=== PATIENT | female | born 1970 ===

== ENCOUNTER 2017-02-26 11:06 | Emergency (ER) | payer MEDICAID ==
[2017-02-26 11:15] VITALS: BMI 45.7
[2017-02-26] MEDS ORDERED: Albuterol-Ipratrop 3 mg / 0.5 (3 ml) UD INH STA ×3 (12:17)
--- NOTE | 2017-02-26 12:46 | ED PDOC ---
HPI: CCC, URI, Sore Throat Time Seen by Provider: 02/26/17 11:46 Chief Complaint (Nursing): Cough, Cold, Congestion Chief Complaint (Provider): cough History Per: Patient History/Exam Limitations: no limitations Additional Complaint(s): 46yo F in ED for eval of cough-states that she has had a cough x 3 weeks-was Rx levoquin, Z-pack, augmetin but none have worked to alleviate her cough. Pt states has hx of asthma-has been noting cough without sputum production wheezing and chest tightness without fever. states her nebulizer is not working. denies chills. Past Medical History Reviewed: Historical Data, Nursing Documentation, Vital Signs Vital Signs: Last Vital Signs Temp 98.5 F 02/26/17 11:16 Pulse 83 02/26/17 11:16 Resp 18 02/26/17 11:16 BP 99/63 L 02/26/17 11:16 Pulse Ox 96 02/26/17 12:47 - Medical History PMH: No Chronic Diseases - Family History Family History: States: No Known Family Hx - Home Medications Home Medications: Ambulatory Orders Medication Instructions Recorded Ipratropium 0.02% [Atrovent] 2.5 ml IH Q4 PRN #12 neb 02/26/17 Promethazine DM [Phenergan DM 5 ml PO BID #30 dose 02/26/17 Syrup] predniSONE [predniSONE Tab] 20 mg PO BID #8 tab 02/26/17 - Allergies Allergies/Adverse Reactions: Allergies Allergy/AdvReac Type Severity Reaction Status Date / Time moxifloxacin [From Avelox] Allergy URTICARIA Verified 02/26/17 11:52 Curb-65 Severity Score - CURB-65 Severity Score Confusion: No Bun >19mg/dl (>7mmol/L): No Respiratory Rate greater than/equal to 30: No Systolic BP <90 or Diastolic BP less than/equal 60mmHg: No Age >64: No Curb-65 Score: 0 Percentage 30-day mortality: 0.6% Review of Systems ROS Statement: Except As Marked, All Systems Reviewed And Found Negative Constitutional: Negative for: Fever, Chills Respiratory: Positive for: Cough, Wheezing Physical Exam - Reviewed Nursing Documentation Reviewed: Yes Vital Signs Reviewed: Yes - Physical Exam Appears: Positive for: Non-toxic, No Acute Distress, Uncomfortable Head Exam: Positive for: ATRAUMATIC, NORMAL INSPECTION, NORMOCEPHALIC Skin: Positive for: Normal Color, Warm, DRY Eye Exam: Positive for: EOMI, Normal appearance, PERRL ENT: Positive for: Normal ENT Inspection Cardiovascular/Chest: Positive for: Regular Rate, Rhythm Respiratory: Positive for: Wheezing. Negative for: Decreased Breath Sounds, Accessory Muscle Use Gastrointestinal/Abdominal: Positive for: Normal Exam, Bowel Sounds, Soft. Negative for: Tenderness Neurologic/Psych: Positive for: Alert, Oriented - ECG O2 Sat by Pulse Oximetry: 96 - Radiology X-Ray: Interpreted by Ct X-Ray Interpretation: No Acute Disease - Progress ED Course And Treament: viral illness with asthma exacerbation- Orders Category Date Time Status CHEST TWO VIEWS (PA/LAT) [RAD] Stat Exams 02/26/17 12:01 Taken Albuterol/Ipratropium [Duoneb 3 mg/0.5 mg (3 ml) UD] Med 02/26/17 12:17 Discontinued 3 ml INH [id number] STA Albuterol/Ipratropium [Duoneb 3 mg/0.5 mg (3 ml) UD] Med 02/26/17 12:17 Discontinued 3 ml INH [id number] STA Albuterol/Ipratropium [Duoneb 3 mg/0.5 mg (3 ml) UD] Med 02/26/17 12:17 Discontinued 3 ml INH [id number] STA methylPREDNISolone [SOLU-Medrol] Med 02/26/17 12:17 Discontinued 125 mg IVP ONCE ONE NEBULIZER TREATMENT [RT] Stat Resp 02/26/17 12:17 Ordered PEAK FLOW PRE/POST TX .PRE/POST TREATMENT Resp 02/26/17 12:17 Ordered PEAK FLOW PRE/POST TX .PRE/POST TREATMENT Resp 02/26/17 12:17 Ordered INFLUENZA A B Stat Serology 02/26/17 12:10 Received Medical Decision Making Medical Decision Making: Pt improved will be d/c with prednisone and duonbed for d/c will f/u with pmd/ pulmonogist and d.c on promethezine Disposition - Clinical Impression Clinical Impression: Cough - Patient ED Disposition Is Patient to be Admitted: No Counseled Patient/Family Regarding: Studies Performed, Diagnosis, Need For Followup, Rx Given - Disposition Disposition: Routine/Home Disposition Time: 15:19 Condition: STABLE Prescriptions: Ipratropium 0.02% [Atrovent] 2.5 ml IH Q4 PRN #12 neb PRN Reason: Wheezing predniSONE [predniSONE Tab] 20 mg PO BID #8 tab Promethazine DM [Phenergan DM Syrup] 5 ml PO BID #30 dose Instructions: Asthma (DC) Forms: Olo (Syriac)
--- NOTE | 2017-02-26 13:11 | RAD ---
HISTORY: cough COMPARISON: No prior. TECHNIQUE: Chest PA and lateral FINDINGS: LUNGS: No acute consolidation. The interstitial markings are slightly increased and coarsened with a few scattered peribronchial cuffing changes. Rule out sequela of reactive/inflammatory airway disease or viral illness. . PLEURA: No significant pleural effusion identified. No pneumothorax apparent. CARDIOVASCULAR: Normal. OSSEOUS STRUCTURES: No significant abnormalities. VISUALIZED UPPER ABDOMEN: Normal. OTHER FINDINGS: None. IMPRESSION: No acute consolidation. The interstitial markings are slightly increased and coarsened with a few scattered peribronchial cuffing changes. Rule out sequela of reactive/inflammatory airway disease or viral illness. .
[2017-02-26] MEDS ORDERED: Albuterol-Ipratrop 3 mg / 0.5 (3 ml) UD ONE (13:30)
[2017-02-26 15:36] VITALS: BP 129/78; PULSE 88; RESP 19; TEMP 98; O2SAT 100
== END 2017-02-26 15:36 | disposition home or self-care (01) ==
LOC: H.ER 11:06
DX: J45.909 Unspecified asthma, uncomplicated (principal)
CPT/HCPCS: 71020; 87804; 94640; 96374; 99282; J2930